=== PATIENT | male | born 1960 | race Two or more races ===

== ENCOUNTER 2020-04-12 03:23 | Emergency (ER) | payer SELFPAY ==
[~2020-04-12] VITALS: Ht 162.6 cm; Wt 82.0 kg
[2020-04-12] MEDS ORDERED: IBUPROFEN 600MG TABLET PO ONE (04:45)
[2020-04-12 05:50] VITALS: BP 110/67
== END 2020-04-12 05:57 | disposition home or self-care (01) ==
LOC: ER 03:23
DX: M79.605 Pain in left leg (principal); M79.604 Pain in right leg; G89.29 Other chronic pain
CPT/HCPCS: 99282